=== PATIENT | female | born 1990 ===

== ENCOUNTER 2020-11-10 13:36 | Emergency (ER) | payer MEDICAID ==
[~2020-11-10] VITALS: Ht 160 cm; Wt 68.0 kg
--- NOTE | 2020-11-10 13:52 | NUR ---
at bedside for assessment
--- NOTE | 2020-11-10 13:52 | NUR ---
Patient complaints of cough and N/V, contact/droplet isolation precautions initiated per MD orders
[2020-11-10] MEDS ORDERED: KETOROLAC TROMETHAMINE 30 MG INJ ONE (14:12)
[2020-11-10] MEDS ORDERED: ONDANSETRON 4 MG/2 ML VIAL ONE (14:12)
[2020-11-10] MEDS ORDERED: ONDANSETRON 4 MG/2 ML VIAL IV ONE (14:15)
[2020-11-10] MEDS ORDERED: KETOROLAC TROMETHAMINE 30 MG INJ IVP ONE (14:15)
--- NOTE | 2020-11-10 14:30 | NUR ---
Patient's sister noted at bedside, the sister was informed of the patient's positive results and encouraged to leave to avoid any more contact, patient's sister declined at this time
[2020-11-10 14:57] LABS: HEMATOCRIT 38.6 % (31.2-41.9); MEAN CORPUSCULAR HEMOGLOBIN 31.3 uug (24.7-32.8); MEAN CORPUSCULAR VOLUME 93.1 fL (75.5-95.3); PLATELET COUNT (AUTO) 205 K/uL (179-408)
[2020-11-10 14:59] LABS: CREATININE 0.8 mg/dL (0.6-1.3); POTASSIUM 3.3 mmol/L (3.5-5.1)
[2020-11-10 15:04] LABS: BILIRUBIN,TOTAL 0.3 mg/dL (0.2-1.0); TOTAL PROTEIN, SERUM 7.1 g/dL (6.4-8.2)
[2020-11-10 15:29] LABS: EOSINOPHILS % (MANUAL) 3 % (0-8); LYMPHOCYTES % (MANUAL) 19 % (20-40); MONOCYTES % (MANUAL) 17 % (2-10); NEUTROPHILS % (MANUAL) 61 % (42-75)
[2020-11-10] MEDS ORDERED: IV NORMAL SALINE 250 ML IV ONE (15:54)
[2020-11-10] MEDS ORDERED: SWABABLE VALVE TRANSFER SET EA MC ONE (15:54)
[2020-11-10] MEDS ORDERED: IOHEXOL 350 100 ML INFUS..BTL ONE (15:54)
[2020-11-10] MEDS ORDERED: IV NORMAL SALINE 1000 ML BAG IV ONE (16:00)
--- NOTE | 2020-11-10 16:10 | NUR ---
Patient noted resting, patient taken to get a CT at this time
[2020-11-10] MEDS ORDERED: ONDA4TAB11 PO (18:06)
--- NOTE | 2020-11-10 19:30 | NUR ---
Patient eloped from facility, would not stop when I told her to so I could remove her IV. ER physician notified. [employer] dispatcher [phone] called and notified.
== END 2020-11-10 20:09 | disposition left against medical advice (07) ==
LOC: ER 13:42
DX: U07.1 COVID-19 (principal); E86.0 Dehydration; R11.10 Vomiting, unspecified; Z82.49 Family history of ischemic heart disease and other diseases of the circulatory system; E87.6 Hypokalemia; R79.1 Abnormal coagulation profile
CPT/HCPCS: 36415; 71045; 71275; 80053; 83605; 83880; 84484; 84702; 85007; 85025; 85379; 87040 ×2; 87426; 93005; 96361; 96374; 96375; 99285; J1885; J2405; Q9967; U0003; 70030-TC; A4663; J7030; J7050

== ENCOUNTER 2023-06-17 16:20 | Emergency (ER) | payer MEDICAID, OTHER ==
[~2023-06-17] VITALS: Ht 157.5 cm; Wt 68.5 kg
[~2023-06-17 16:20] MED LIST: ONDA4TAB11 PO
[2023-06-17 16:23] VITALS: O2SAT 100
[2023-06-17] MEDS ORDERED: LORAZEPAM 0.5 MG TABLET PO ONE (16:45)
[2023-06-17] MEDS ORDERED: LORAZEPAM 0.5 MG TABLET ONE (16:47)
[2023-06-17 17:16] LABS: CALCIUM 9.6 mg/dL (8.5-10.1); CARBON DIOXIDE 26 mmol/L (21-32); CHLORIDE 101 mmol/L (98-107); GLUCOSE 108 mg/dL (74-106); POTASSIUM 3.2 mmol/L (3.5-5.1); SODIUM SERUM 136 mmol/L (136-145); UREA NITROGEN, BLOOD 9 mg/dL (7-18)
[2023-06-17 17:44] LABS: BASOPHILS % (AUTO) 0.4 % (0.0-2.0); EOSINOPHILS # (AUTO) 0.2 K/uL (0.0-0.7); EOSINOPHILS % (AUTO) 1.4 % (0.0-7.0); HEMATOCRIT 39.3 % (31.2-41.9); HEMOGLOBIN 13.6 g/dL (10.9-14.3); LYMPHOCYTES # (AUTO) 2.8 K/uL (0.8-4.8); LYMPHOCYTES % (AUTO) 26.4 % (20.5-51.5); MEAN CORPUSCULAR HEMOGLOBIN 31.7 uug (24.7-32.8); MEAN CORPUSCULAR HGB CONC 35 g/dL (32.3-35.6); MEAN CORPUSCULAR VOLUME 91.6 fL (75.5-95.3); MONOCYTES # (AUTO) 0.8 K/uL (0.1-1.30); MONOCYTES % (AUTO) 7.4 % (0.0-11.0); NEUTROPHILS # (AUTO) 6.8 K/uL (1.8-8.9); NEUTROPHILS % (AUTO) 64.4 % (38.5-71.5); PLATELET COUNT (AUTO) 326 K/uL (179-408); RED BLOOD CELL COUNT(AUTO) 4.29 MIL/uL (3.63-4.92); RED CELL DISTRIBUTION WIDTH 13.7 % (12.3-17.7); WHITE BLOOD COUNT (AUTO) 10.6 K/uL (3.8-11.8)
[2023-06-17 17:46] LABS: DIFFERENTIAL COMMENT 1
[2023-06-17 17:56] LABS: *URINE HCG, QUAL POSITIVE (NEGATIVE)
[2023-06-17] MEDS ORDERED: POTASSIUM CHLORIDE 20 MEQ TAB.PRT.SR ONE (18:30)
[2023-06-17] MEDS ORDERED: POTASSIUM CHLORIDE 20 MEQ TAB.PRT.SR PO ONE (18:30)
== END 2023-06-17 19:04 | disposition home or self-care (01) ==
LOC: ER 16:21
DX: F41.9 Anxiety disorder, unspecified (principal); R42 Dizziness and giddiness; R06.02 Shortness of breath; R03.0 Elevated blood-pressure reading, without diagnosis of hypertension; R10.2 Pelvic and perineal pain; Z79.899 Other long term (current) drug therapy; Z60.2 Problems related to living alone
CPT/HCPCS: 36415; 71045; 76856; 84484; 84703; 85025; 93005; A4606; A4663